=== PATIENT | female | born 1955 | race Caucasian/White ===

== ENCOUNTER 2021-05-01 04:33 | Emergency (ER) | payer BC ==
[~2021-05-01] VITALS: Ht 167.6 cm; Wt 70.3 kg
--- NOTE | 2021-05-01 04:36 | NUR ---
SHANNON 888 FROM HOME C/O FEELING DIZZY WITH N/V AFTER EATING DINNER LAST NIGHT. GOT OUT OF BED 1 HR AGO, FELL, HEAD BACK OF HEAD. R POSTERIOR HEAD LAC MEASURING 2CM. TDAP NOT UP TO DATE . PT A/OX4. TOLERATING R/A WELL WITH NO SOB. CONNECTED PT TO POX AND MONITOR.
--- NOTE | 2021-05-01 05:05 | NUR ---
RAC #18G S/L; PATENT AND INTACT. BLOOD COLLECTED AND GIVEN TO LAB
--- NOTE | 2021-05-01 05:06 | NUR ---
EKG DONE & REPORTED TO DR. SAMI OATES
[2021-05-01 05:11] LABS: BASOPHILS % (AUTO) 0.5 % (0.0-2.0); EOSINOPHILS % (AUTO) 0.1 % (0.0-6.0); HEMATOCRIT 40 % (33-45); HEMOGLOBIN 13.4 g/dL (11.5-14.8); LYMPHOCYTES % (AUTO) 17.4 % (20.0-44.0); MEAN CORPUSCULAR HGB CONC 34 g/dl (31.0-36.0); MEAN CORPUSCULAR VOLUME 90 fL (82-100); MONOCYTES # (AUTO) 0.2 K/uL (0.1-1.30); MONOCYTES % (AUTO) 4.3 % (2.0-12.0); NEUTROPHILS # (AUTO) 4.4 K/uL (1.8-8.9); NEUTROPHILS % (AUTO) 77.7 % (43.0-81.0); PLATELET COUNT (AUTO) 200 K/uL (150-450); RED BLOOD CELL COUNT(AUTO) 4.43 MIL/uL (4.0-5.2); WHITE BLOOD COUNT (AUTO) 5.6 K/uL (4.3-11.0)
--- NOTE | 2021-05-01 05:11 | NUR ---
PT TAKEN TO CT VIA AYESHA
[2021-05-01] MEDS ORDERED: TDAP [DIPH/PERTUSSIS/TET] 0.5 ML VIAL IM ONE (05:15)
[2021-05-01] MEDS ORDERED: DICYCLOMINE HCL INJ 20 MG/2 ML AMPUL IM ONE (05:15)
[2021-05-01] MEDS ORDERED: ONDA4TAB5 PO (05:22)
--- NOTE | 2021-05-01 05:25 | NUR ---
PT RETURNED TO ER BED [address] V[address] BRANTERVIN
--- NOTE | 2021-05-01 05:29 | NUR ---
POC BS 166; NOTIFIED DR. GALLARDO
[2021-05-01 05:35] LABS: ALANINE AMINOTRANSFERASE 32 U/L (12-78); ALBUMIN 3.6 g/dL (3.4-5.0); ALKALINE PHOSPHATASE 25 U/L (46-116); ASPARTATE AMINOTRANSFERASE 22 U/L (15-37); BILIRUBIN,DIRECT 0.1 mg/dL (0.0-0.2); BILIRUBIN,TOTAL 0.3 mg/dL (0.2-1.0); CALCIUM, SERUM 8.3 mg/dL (8.5-10.1); CARBON DIOXIDE 28 mmol/L (21-32); CHLORIDE 103 mmol/L (98-107); CREATININE 0.6 mg/dL (0.6-1.3); GLUCOSE 172 mg/dL (74-106); POTASSIUM 4.1 mmol/L (3.5-5.1); SODIUM SERUM 136 mmol/L (136-145); TOTAL PROTEIN, SERUM 6.5 g/dL (6.4-8.2); UREA NITROGEN, BLOOD 14 mg/dL (7-18)
[2021-05-01] MEDS: DICYCLOMINE HCL INJ 20 MG/2 ML AMPUL IM ONE (05:40)
[2021-05-01] MEDS: TDAP [DIPH/PERTUSSIS/TET] 0.5 ML VIAL IM ONE (05:41)
--- NOTE | 2021-05-01 06:25 | NUR ---
CO OP AT PT'S BEDSIDE
[2021-05-01] MEDS ORDERED: ONDANSETRON HCL/PF 4 MG/2 ML VIAL ONE ×2 (06:29→06:35)
[2021-05-01] MEDS: ONDANSETRON HCL/PF - ER 4 MG/2 ML VIAL IV ONE (06:32)
--- NOTE | 2021-05-01 07:46 | NUR ---
PT GIVEN WATER AND SALTINE CRACKERS, PT TOLERATED IT WELL.
--- NOTE | 2021-05-01 07:56 | NUR ---
IV removed. Catheter intact and site benign. Pressure and 4x4 applied to site. No bleeding noted. Patient discharged to home in stable condition. Written and verbal after care instructions given. Patient verbalizes understanding of instruction.
[2021-05-01 08:04] VITALS: BP 127/75
== END 2021-05-01 08:08 | disposition home or self-care (01) ==
LOC: ER 04:47
DX: S00.01XA Abrasion of scalp, initial encounter (principal); K52.89 Other specified noninfective gastroenteritis and colitis; Z79.899 Other long term (current) drug therapy; W18.30XA Fall on same level, unspecified, initial encounter; Y93.89 Activity, other specified; Y92.89 Other specified places as the place of occurrence of the external cause; Y99.8 Other external cause status
CPT/HCPCS: 36415; 70450; 71045; 80048; 80076; 84484 ×2; 85025; 85730; 90471; 90715; 93005; 96372; 96374; 99285; A6403; J0500; J2405 ×2